=== PATIENT | female | born 1995 | race Caucasian/White ===

== ENCOUNTER 2017-06-03 15:21 | Emergency (ER) | payer BC ==
[~2017-06-03 15:21] MED LIST: GUMMCHW PO
--- NOTE | 2017-06-03 16:27 | PD ---
HPI Chief Complaint Pelvic pain and pelvic pressure Travel History International Travel<30 Days: No Contact w/Intl Traveler<30Days: No Known Affected Area: No History of Present Illness HPI 22-year-old, 001, IUP at 35.for new care uncomplicated per patient report The patient presents complaining complaining of pelvic pain and pressure that started at 6 AM with occasional sharp pains that are knifelike and stabbing in quality when she moves. The pelvic pain and pressure is constant and there are no aggravating or alleviating factors. The sharp pains are better at rest and aggravated with certain movements. Patient denies any VB, LOF, or painful contractions or cramping. Weeks Gestation: 35 Para: 1 : 2 History Past Medical History Medical History: Denies Significant Hx Obstetric History Obstetric History FT Past Surgical History Narrative Surgical Ear surgery x2 Family History Family History: Negative Social History Alcohol Use: No Tobacco Use: No Substance Abuse: No Allergies-Medications (Allergen,Severity, Reaction): Coded Allergies: No Known Allergies (Unverified , 03/25/15) Home Meds Reported Medications Pediatric Multiple Vitamin W/ (Gummi Bear Multivitamin/M) Multivit Chw, 1 TAB PO DAILY 03/25/15 Review of Systems Except as stated in HPI: all other systems reviewed are Neg Genitourinary: Pelvic Pain Physical Exam Narrative GENERAL: Well-nourished, well-developed patient. SKIN: Warm and dry. HEAD: Normocephalic and atraumatic. EYES: No scleral icterus. No injection or drainage. ENT: No nasal drainage noted. Mucous membranes pink. Airway patent. NECK: Supple, trachea midline. No JVD. CARDIOVASCULAR: Regular rate and rhythm without murmurs, gallops, or rubs. RESPIRATORY: Breath sounds equal bilaterally. No accessory muscle use. BREASTS: Bilateral exam showed no masses , no retractions, no nipple discharge. ABDOMEN/GI: Abdomen soft, non-tender, bowel sounds present, no rebound, no guarding Gravid GENITOURINARY: External Genitalia: intact and normal in appearance, BUS normal, normal rugae , no cervical/vaginal masses noted, physiologic discharge, cervical exam is closed/thick/high/posterior, there are no contractions noted and membranes are intact. FHT's: Category: Category 1 heart rate tracing with reactive NST Baseline: Baseline heart rate 150s Reactive: Reactive NST Variability: Moderate long-term variability Decels: Good accelerations noted and no decelerations EXTREMITIES: No cyanosis or edema. BACK: Nontender without obvious deformity. No CVA tenderness. NEUROLOGICAL: Awake and alert. Motor and sensory grossly within normal limits. Five out of 5 muscle strength in all muscle groups. Normal speech. Musculoskeletal: Grossly normal ROM, gait, muscle strength Psych: Grossly normal memory and affect MDM Plan Assessment/plan: 1. Intrauterine at 35.4 2. Pelvic pain and pressure: Likely related to normal at gestational age of 35 weeks no evidence of labor, strict labor precautions. Sharp abdominal pains are consistent with round ligament stretching, there is no evidence of labor but the patient's given labor precautions at this time 3. well-being: The patient has reassuring testing with a reactive NST and FHR other reassuring and appropriate for gestational age. Strict FKC daily. 4. h/o ear surgery x2 5. Follow-up with primary OB in 2-3 days or sooner as needed Diagnosis Diagnosis: Primary Impression: 35 weeks gestation of Additional Impression: False labor before 37 completed weeks of gestation Disposition: 01 DISCHARGE HOME Condition: Good Patient Instructions: General Instructions, Early Labor Signs (ED), Movement (ED) Departure Forms: Tests/Procedures Trudi Jacobo MD Jun 03, 2017 16:27
== END 2017-06-03 16:44 | disposition home or self-care (01) ==
LOC: HOBED 15:21
DX: O47.03 False labor before 37 completed weeks of gestation, third trimester (principal); R10.2 Pelvic and perineal pain; Z3A.35 35 weeks gestation of pregnancy
CPT/HCPCS: 59025

== ENCOUNTER 2017-06-25 20:38 | Inpatient (IN) | payer BC ==
[~2017-06-25] VITALS: Ht 160 cm; Wt 76.4 kg
[2017-06-25] MEDS ORDERED: LACTATED RINGER'S 1000 ML INJ 1,000 ML IV SCH (21:22)
[2017-06-25] MEDS ORDERED: LACTATED RINGER'S 1000 ML INJ 1,000 ML IV PRN (21:22)
--- NOTE | 2017-06-25 21:22 | HHI.HP ---
HPI Chief Complaint conTraction pain and possibly leaking fluid Date Seen: Jun 25, 2017 Time Seen: 21:15 Travel History International Travel<30 Days: No Contact w/Intl Traveler<30Days: No Known Affected Area: No History of Present Illness HPI Patient is 22-year-old white female previous and would like to now 38 weeks who presents in active labor. She sees Dr. Pal for care and Dr. Kirk covering for him tonight. She complains of painful uterine contractions are regular she will possibly leaking fluid her amnio sure is negative. She has only minimal spotting. heart rate tracing is reactive and she is clarisse regularly every 2-3 minutes Weeks Gestation: 38 Para: 1 : 2 History Obstetric History Obstetric History 1 Past Surgical History Narrative Surgical 1 Social History Alcohol Use: No Tobacco Use: No Substance Abuse: No Allergies-Medications (Allergen,Severity, Reaction): Coded Allergies: No Known Allergies (Unverified , 03/25/15) Home Meds Reported Medications Pediatric Multiple Vitamin W/ (Gummi Bear Multivitamin/M) Multivit Chw, 1 TAB PO DAILY 03/25/15 Review of Systems General / Constitutional: No: Fever, Weight Gain, Chills, Other Eyes: No: Diploplia, Blurred Vision, Visual changes, Pain, Photophobia HENT: No: Headaches, Vertigo, Lightheadedness Cardiovascular: No: Irregular Rhythm, Chest Pain or Discomfort, Palpitations, Tachycardia, Syncope, Varicosities, Edema, Cyanosis Respiratory: No: Cough, Short of Breath, Other Gastrointestinal: Abdominal Pain, No: Nausea, Vomiting, Diarrhea Genitourinary: No: Decreased Urinary Output, Oliguria Musculoskeletal: No: Limited ROM, Weakness, Cramping, Edema, Pain Skin: No Rash, No Itching, No Dryness, No Lumps, No Change in Pigmentation, No Change in Nails, No Alopecia, No Lesions Neurologic: No: Weakness, Dizziness, Syncope, Focal Abnormalities, Coordination Problem, Headache, Slurred Speech, Seizures Psychiatric: No: Depression, Suicidal Ideations, Homicidal Ideation Endocrine: No: Heat Intolerance, Cold Intolerance, Polydipsia, Polyuria, Other Physical Exam Narrative GENERAL: Well-nourished, well-developed patient. SKIN: Warm and dry. HEAD: Normocephalic and atraumatic. EYES: No scleral icterus. No injection or drainage. ENT: No nasal drainage noted. Mucous membranes pink. Airway patent. NECK: Supple, trachea midline. No JVD. CARDIOVASCULAR: Regular rate and rhythm without murmurs, gallops, or rubs. RESPIRATORY: Breath sounds equal bilaterally. No accessory muscle use. BREASTS: Bilateral exam showed no masses , no retractions, no nipple discharge. ABDOMEN/GI: Abdomen soft, non-tender, bowel sounds present, no rebound, no guarding Gravid to [38-] weeks size Fundal Height: [-38] GENITOURINARY: External Genitalia: intact and normal in appearance BUS glands: [-] Cervix: [Mid position-] Dilatation: [-4] Effacement: [-] 90 Station: [0] Presentation: [vtx-] Membranes: [intact amnio sure negative] Uterine Contractions: [-]reg FHT's: Category: [-1] Baseline: [-133] Reactive: [-yes] Variability: [-mod] Decels: [-none] EXTREMITIES: No cyanosis or edema. BACK: Nontender without obvious deformity. No CVA tenderness. NEUROLOGICAL: Awake and alert. Motor and sensory grossly within normal limits. Five out of 5 muscle strength in all muscle groups. Normal speech. Caprini VTE Risk Assessment Caprini VTE Risk Assessment: No/Low Risk (score <= 1) Caprini Risk Assessment Model Point Value = 1 Point Value = 2 Point Value = 3 Point Value = 5 Age 41-60 Minor surgery BMI > 25 kg/m2 Swollen legs Varicose veins or History of unexplained or recurrent spontaneous Oral contraceptives or hormone replacement Sepsis (< 1 month) Serious lung disease, including pneumonia (< 1 month) Abnormal pulmonary function Acute myocardial infarction Congestive heart failure (< 1 month) History of inflammatory bowel disease Medical patient at bed rest Age 61-74 Arthroscopic surgery Major open surgery (> 45 min) Laparoscopic surgery (> 45 min) Malignancy Confined to bed (> 72 hours) Immobilizing plaster cast Central venous access Age >= 75 History of VTE Family history of VTE Factor V Leiden Prothrombin [id number] Lupus anticoagulant Anticardiolipin antibodies Elevated serum homocysteine Heparin-induced thrombocytopenia Other congenital or acquired thrombophilia Stroke (< 1 month) Elective arthroplasty Hip, pelvis, or leg fracture Acute spinal cord injury (< 1 month) Prophylaxis Regimen Total Risk Factor Score Risk Level Prophylaxis Regimen 0-1 Low Early ambulation 2 Moderate Order ONE of the following: *Sequential Compression Device (SCD) *Heparin 5000 units SQ BID 3-4 Higher Order ONE of the following medications: *Heparin 5000 units SQ TID *Enoxaparin/Lovenox 40 mg SQ daily (WT < 150 kg, CrCl > 30 mL/min) *Enoxaparin/Lovenox 30 mg SQ daily (WT < 150 kg, CrCl > 10-29 mL/min) *Enoxaparin/Lovenox 30 mg SQ BID (WT < 150 kg, CrCl > 30 mL/min) AND/OR *Sequential Compression Device (SCD) 5 or more Highest Order ONE of the following medications: *Heparin 5000 units SQ TID (Preferred with Epidurals) *Enoxaparin/Lovenox 40 mg SQ daily (WT < 150 kg, CrCl > 30 mL/min) *Enoxaparin/Lovenox 30 mg SQ daily (WT < 150 kg, CrCl > 10-29 mL/min) *Enoxaparin/Lovenox 30 mg SQ BID (WT < 150 kg, CrCl > 30 mL/min) AND *Sequential Compression Device (SCD) Data Data Group B Strep: Negative Labs Amnio sure negative Assessment/Plan Assessment and Plan Patient 22-year-old white female at 38 weeks she's previous and wants a . She understands risk and benefit . There is 1% approximately uterine rupture rate she's willing to accept that. She is clarisse regularly cervix is 4 cm 90% the baby's head to 0 station. heart rate tracing is reactive contractions seen, amnio sure was negative. Impression-term intrauterine previous for delivery now in active labor Plan-admit for labor management augmentation as needed anticipate vaginal delivery notify Dr. Reagan Reis,Jay Brasher II, MD Jun 25, 2017 21:22
[2017-06-25] MEDS ORDERED: MINERAL OIL 10 ML VIAL TOPICAL PRN (21:30)
[2017-06-25] MEDS ORDERED: SODIUM CHLORID 0.9% 500 ML INJ 500 ML IV PRN (21:30)
[2017-06-25] MEDS ORDERED: LIDOCAINE HCL 1% 50 ML VIAL INFIL PRN (21:30)
[2017-06-25] MEDS ORDERED: LIDOCAINE HCL 1% 50 ML VIAL I-DERMAL PRN (21:30)
[2017-06-25] MEDS ORDERED: OXYTOCIN 30 UNITS-500ML PREMIX 500 ML IV ONE (21:30)
[2017-06-25] MEDS ORDERED: CITRIC ACID-SODIUM CITRATE LIQ 30 ML UDC PO SCH (21:30)
[2017-06-25] MEDS ORDERED: SODIUM CHLOR 0.9% 1000 ML INJ 1,000 ML IV PRN (21:42)
[2017-06-25 22:03] LABS: AUTOMATED NEUTROPHIL # 9.1 TH/MM3 (1.8-7.7); BASOPHIL % 0.3 % (0.0-2.0); EOSINOPHIL % 0.2 % (0.0-4.0); HEMATOCRIT 36.3 % (35.0-46.0); HEMO FLAGS DIFF FINAL; LYMPH % 13.5 % (9.0-44.0); LYMPHOCYTE # 1.5 TH/MM3 (1.0-4.8); MEAN CELL VOLUME 87.6 FL (80.0-100.0); MEAN CORPUSCULAR HEMOGLOBIN 29.1 PG (27.0-34.0); MEAN CORPUSCULAR HGB CONC 33.3 % (32.0-36.0); MONO % 6.7 % (0.0-8.0); NEUT % 79.3 % (16.0-70.0); PLATELET COUNT 256 TH/MM3 (150-450); RED BLOOD COUNT 4.15 MIL/MM3 (4.00-5.30); RED CELL DISTRIBUTION WIDTH 13.5 % (11.6-17.2); WHITE BLOOD COUNT 11.5 TH/MM3 (4.0-11.0)
[2017-06-25 22:11] LABS: BACTERIA, URINE MOD /hpf; BLOOD, URINE MOD (NEG); COMMENT (UR) CULTURE INDICATED; CULTURE IF INDICATED CULTURE INDICATED; GLUCOSE,URINE NEG (NEG); KETONE, URINE 40 mg/dL (NEG); MUCUS URINE MANY /lpf (OCC); NITRITE,URINE NEG (NEG); PH, URINE 6.5 (5.0-8.5); SQUAMOUS EPITHELIAL CELL URINE 31 /hpf (0-5); URINE COLOR DARK-YELLOW (YELLW/STRAW)
[2017-06-25] MEDS ORDERED: fentaNYL 2MCG-BUPIV 0.125% INJ 100 ML ONE (22:11)
[2017-06-25] MEDS ORDERED: ePHEDrine/NS 25 MG/5 ML SYR ONE (22:12)
[2017-06-25] MEDS ORDERED: BUPIVACAINE HCL PF 0.25% 10 ML VIAL ONE (22:38)
[2017-06-26] MEDS ORDERED: NO SYSTEM NARCOTICS PRN (00:15)
[2017-06-26] MEDS ORDERED: fentaNYL 2MCG-BUPIV 0.125% 100 ML EPIDURAL SCH (00:15)
[2017-06-26] MEDS ORDERED: ePHEDrine/NS 25 MG/5 ML SYR IV PRN (00:15)
[2017-06-26] MEDS ORDERED: DO NOT ADMINISTER ANTICOAGULANTS PRN (00:15)
[2017-06-26] MEDS ORDERED: ACETAMINOPHEN 650 MG SUPP RECTAL PRN (08:15)
[2017-06-26] MEDS ORDERED: GENTAMICIN INJ 80 MG in SODIUM CHLORIDE 0.9% INJ 100 ML IV SCH (08:15)
[2017-06-26] MEDS ORDERED: OXYTOCIN 30 UNITS-500ML PREMIX 500 ML IV SCH ×2 (08:15→12:15)
[2017-06-26] MEDS: GENTAMICIN/SOD CHL 80 MG/100 ML IV SCH ×2 (09:26→18:36)
[2017-06-26] MEDS ORDERED: MISOPROSTOL 200 MCG TAB ONE (11:13)
--- NOTE | 2017-06-26 11:57 | PD.OB.DELI ---
Weeks gestation: 38 Gest age assessed date: Jun 26, 2017 Gest age assessed time: 10:00 Pt started active labor?: Yes Active labor start date: Jun 25, 2017 Active labor start time: 18:00 Medical induction of labor?: No Artificial rupture of membrane: Yes Artificial ROM date: Jun 25, 2017 Artifical ROM time: 23:17 Anesthesia: Epidural Episiotomy: None Vaginal Delivery: Normal Presentation: Occiput anterior Nuchal Cord: None Delayed cord clamping (45 sec): No : Female Delivery date: Jun 26, 2017 Delivery time: 11:06 One Minute : 9 Five Minute : 9 Placenta: Manual removal Laceration: Vaginal laceration, 1 deg Repair: Chromic interrupted, Vicryl interrupted Estimated blood loss: 400 Additional Information Assumed care for patient from Dr. Reis. Patient with SVE 9cm for nearly 7h and being augmented with oxytocin. Upon vaginal exam after assuming care for the patient, she was noted to be completely dilated and +1 station. heart tones were reassuring so we commenced spontaneous maternal expulsive efforts the patient continued these efforts and the vertex was delivered atraumatically over an intact perineum followed by atraumatic delivery of the anterior shoulder and remainder of the atraumatically with overall reassuring heart tones. The was placed on the maternal abdomen and the cord was doubly clamped and cut so the could be taken to the warmer for additional stimulation. The was vigorous before 1 minute of life. The uterine cervix had clamped down so the placenta was removed manually after consenting the patient. The placenta appeared to be intact. The placenta was sent to pathology and cultures were obtained. A first-degree vaginal laceration was noted which was repaired with 2-0 chromic in an interrupted fashion and a 3-0 Vicryl to ensure excellent cosmesis. EBL 400. The weighed 3165 g and had Apgars of 9/9. All sponge, lap, and needle counts were correct 2. Mother and baby are both doing well. Trudi Jacobo MD Jun 26, 2017 11:57
[2017-06-26] MEDS ORDERED: ALUMINUM/MAGNESIUM/SIMETH 30 ML CUP PO PRN (12:15)
[2017-06-26] MEDS ORDERED: BENZOCAINE 20% TOPICAL SPRAY 60 ML CAN TOPICAL PRN (12:15)
[2017-06-26] MEDS ORDERED: WITCH HAZEL 50%/GLYCERIN 12.5% 40 PAD JAR TOPICAL PRN (12:15)
[2017-06-26] MEDS ORDERED: SODIUM CHLORIDE 0.9% FLUSH 10 ML FLUSH IV FLUSH PRN (12:15)
[2017-06-26] MEDS ORDERED: ONDANSETRON ODT 4 MG TAB PO PRN (12:15)
[2017-06-26] MEDS ORDERED: ZOLPIDEM TARTRATE 5 MG TAB PO PRN (12:15)
[2017-06-26] MEDS ORDERED: ACETAMINOPHEN 325 MG TAB PO PRN (12:15)
[2017-06-26] MEDS ORDERED: METHYLERGONOVINE MALEATE 0.2 MG TAB PO PRN (12:15)
[2017-06-26] MEDS ORDERED: DOCUSATE SODIUM 50 MG/SENNA 8.6 MG TAB PO PRN (12:15)
[2017-06-26] MEDS ORDERED: oxyCODONE/ACETAMINOPHEN 5 MG/325 MG TAB PO PRN ×2 (12:15)
[2017-06-26] MEDS: AMPICILLIN INJ 2,000 MG in SODIUM CHLORIDE 0.9% INJ 100 ML IV SCH ×2 (12:31→18:00)
[2017-06-26] MEDS: IBUPROFEN 600 MG TAB PO PRN ×2 (12:32→20:15)
[2017-06-26] MEDS ORDERED: MEASLES, MUMPS, RUBELLA VACCINE 0.5 ML VIAL SQ ONE (16:00)
[2017-06-26] MEDS ORDERED: DIPHTH/TETANUS/ACEL PERTUSSIS (BOOSTER) 0.5 ML VIAL/PFS IM ONE (16:00)
[2017-06-26] MEDS ORDERED: SODIUM CHLORIDE 0.9% FLUSH 10 ML FLUSH IV FLUSH SCH (21:00)
[2017-06-27] MEDS: IBUPROFEN 600 MG TAB PO PRN (06:45)
[2017-06-27] MEDS: GENTAMICIN/SOD CHL 80 MG/100 ML IV SCH ×2 (10:01→18:35)
--- NOTE | 2017-06-27 10:42 | HHI.OB ---
Subjective Post Operative Day: 1 Remarks Pt seen and examined this morning. day # 1 from . AFVSS overnight. Decreased lochia. Denies dysuria. No breast tenderness. She is feeding the baby via breast and bottle. Appetite good. No nausea or vomiting. Patient has not yet had a bowel movement or passed bowel gas. Ambulating well. Denies calf pain or shortness of breath. Otherwise, she is doing well this morning and has no other concerns. Objective Result Diagram: 06/25/172126 Objective Remarks GENERAL: Well-nourished, well-developed patient. CARDIOVASCULAR: Regular rate and rhythm without murmurs, gallops, or rubs. RESPIRATORY: Breath sounds equal bilaterally. No accessory muscle use. ABDOMEN/GI: Abdomen soft, non-tender, bowel sounds present. Incision: Clean, dry and intact. Fundus: Firm, non-tender at umbilicus. GENITOURINARY: Light to moderate bleeding. EXTREMITIES: No cyanosis or edema, non-tender, without signs of DVT. Medications and IVs Current Medications Medications (Trade) Dose Ordered Sig/Jocelyn Route Start Time Stop Time Status Last Admin Fentanyl/ Bupivacaine HCl 100 ml @ 0 mls/hr TITRATE EPIDURAL 06/26/17 00:15 06/26/17 05:51 Ampicillin Sodium 2000 mg/Sodium Chloride 100 ml @ 400 mls/hr Q6HR IV 06/26/17 12:00 06/26/17 18:00 (Tylenol Supp) 650 mg Q6H PRN RECTAL 06/26/17 08:15 06/26/17 08:50 Gentamicin Sulfate/Sodium Chloride 100 ml @ 200 mls/hr Q8H IV 06/26/17 10:00 06/27/17 10:01 (NS Flush) 2 ml BID IV FLUSH 06/26/17 21:00 (NS Flush) 2 ml UNSCH PRN IV FLUSH 06/26/17 12:15 (Tylenol) 650 mg Q4H PRN PO 06/26/17 12:15 (Motrin) 600 mg Q6H PRN PO 06/26/17 12:15 06/27/17 06:45 (Percocet 5-325 Mg) 1 tab Q4H PRN PO 06/26/17 12:15 (Percocet 5-325 Mg) 2 tab Q4H PRN PO 06/26/17 12:15 06/27/17 06:45 (Americaine 20% Top Spr) 1 spray Q4H PRN TOPICAL 06/26/17 12:15 06/26/17 15:20 (Tucks Pads) 1 applic QID PRN TOPICAL 06/26/17 12:15 06/26/17 15:20 (Nina-Colace) 2 tab Q12H PRN PO 06/26/17 12:15 (Ambien) 5 mg HS PRN PO 06/26/17 12:15 (Mag-Al Plus Susp Liq) 15 ml Q8H PRN PO 06/26/17 12:15 (Zofran Odt) 4 mg Q6H PRN PO 06/26/17 12:15 (Methergine) 0.2 mg Q6H PRN PO 06/26/17 12:15 Assessment/Plan Assessment and Plan 22 y/o female who is day # 1 s/p uncomplicated . -Continue routine care. -Motrin PRN pain. -Patient with fever to 101.6. Patient started on ampicillin and gentamicin for antibacterial coverage secondary to endometritis. Patient afebrile overnight without complaints today. -Encouraged OOB. Advised pelvic rest for 6 wks. -Re: ctrl, she would like to discuss her options at her follow-up appointment. -Anticipate discharge tomorrow depending patient being afebrile for 36 hours (likely tomorrow pending clinical course). MD Randy Aguilar Dr., Ryan H MD R2 Jun 27, 2017 10:42
[2017-06-27] MEDS: AMPICILLIN INJ 2,000 MG in SODIUM CHLORIDE 0.9% INJ 100 ML IV SCH ×2 (12:35→17:57)
[2017-06-27 17:40] VITALS: BP 105/74; PULSE 69; RESP 16; TEMP 97.6
[2017-06-28] MEDS: GENTAMICIN/SOD CHL 80 MG/100 ML IV SCH ×2 (02:00→11:10)
--- NOTE | 2017-06-28 11:02 | HHI.DCPOC ---
Discharge Care Plan Your Health Problems Are: Vaginal delivery Report Symptoms to Your Doctor -Temperature above 100.5 degrees -Redness, of incision or excessive or foul smelling drainage -Unusual pain or calf pain -Increased vaginal bleeding -Painful or difficulty urinating -Feelings of extreme sadness or anxiety after 2 weeks Goals to Promote Your Health * To prevent worsening of your condition and complications * To maintain your health at the optimal level Directions to Meet Your Goals Take your medications as prescribed Follow your dietary instruction Follow activity as directed Ensure plenty of rest for recovery Drink fluids for hydration Keep your appointments as scheduled Take your immunizations and boosters as scheduled If your symptoms worsen call your PCP, if no PCP go to Urgent Care Center or Emergency Room Smoking is Dangerous to Your Health. Avoid second hand smoke Call the 24-hour crisis hotline for domestic abuse at Shahida Joy Jun 28, 2017 11:02
[2017-06-28] MEDS: AMPICILLIN INJ 2,000 MG in SODIUM CHLORIDE 0.9% INJ 100 ML IV SCH ×3 (11:11)
[2017-06-28] MEDS ORDERED: IBUP-232 PO (11:14)
--- NOTE | 2017-06-28 11:30 | HHI.OB ---
Subjective Post Day: 2 Objective Vitals/I&O Vital Signs Date Time Temp Pulse Resp B/P (MAP) Pulse Ox O2 Delivery O2 Flow Rate FiO2 06/27/17 17:40 97.6 69 16 105/74 (84) Objective Remarks GENERAL: Well-nourished, well-developed patient. CARDIOVASCULAR: Regular rate and rhythm without murmurs, gallops, or rubs. RESPIRATORY: Breath sounds equal bilaterally. No accessory muscle use. ABDOMEN/GI: Abdomen soft, non-tender. Fundus: Firm, non-tender at umbilicus. GENITOURINARY: Light to moderate bleeding. EXTREMITIES: No cyanosis or edema, non-tender, without signs of DVT. Medications and IVs Current Medications Medications (Trade) Dose Ordered Sig/Jocelyn Route Start Time Stop Time Status Last Admin Fentanyl/ Bupivacaine HCl 100 ml @ 0 mls/hr TITRATE EPIDURAL 06/26/17 00:15 06/26/17 05:51 Ampicillin Sodium 2000 mg/Sodium Chloride 100 ml @ 400 mls/hr Q6HR IV 06/26/17 12:00 06/28/17 11:11 (Tylenol Supp) 650 mg Q6H PRN RECTAL 06/26/17 08:15 06/26/17 08:50 Gentamicin Sulfate/Sodium Chloride 100 ml @ 200 mls/hr Q8H IV 06/26/17 10:00 06/28/17 11:10 (NS Flush) 2 ml BID IV FLUSH 06/26/17 21:00 06/27/17 09:00 (NS Flush) 2 ml UNSCH PRN IV FLUSH 06/26/17 12:15 (Tylenol) 650 mg Q4H PRN PO 06/26/17 12:15 (Motrin) 600 mg Q6H PRN PO 06/26/17 12:15 06/27/17 06:45 (Percocet 5-325 Mg) 1 tab Q4H PRN PO 06/26/17 12:15 (Percocet 5-325 Mg) 2 tab Q4H PRN PO 06/26/17 12:15 06/27/17 06:45 (Americaine 20% Top Spr) 1 spray Q4H PRN TOPICAL 06/26/17 12:15 06/26/17 15:20 (Tucks Pads) 1 applic QID PRN TOPICAL 06/26/17 12:15 06/26/17 15:20 (Nina-Colace) 2 tab Q12H PRN PO 06/26/17 12:15 (Ambien) 5 mg HS PRN PO 06/26/17 12:15 (Mag-Al Plus Susp Liq) 15 ml Q8H PRN PO 06/26/17 12:15 (Zofran Odt) 4 mg Q6H PRN PO 06/26/17 12:15 (Methergine) 0.2 mg Q6H PRN PO 06/26/17 12:15 Assessment/Plan Problem List: (1) Normal vaginal delivery ICD Codes: O80 - Encounter for full-term uncomplicated delivery Assessment and Plan 22 y/o female who is day # 1 s/p uncomplicated . pt doing well pain well managed not taking any oral medications at this time bonding with infant -Continue routine care. Discharge Planning dc home today Shahida Joy Jun 28, 2017 11:30
[2017-06-28] MEDS ORDERED: DIPHTH/TETANUS/ACEL PERTUSSIS (BOOSTER) 0.5 ML VIAL/PFS IM ONE (13:15)
--- NOTE | 2017-06-28 13:31 | HHI.DS ---
Admission Date Jun 25, 2017 at 21:23 Discharge Date: Jun 28, 2017 Admitting Diagnosis 38 week gestation previous c section, desires active labor Diagnosis: (1) Normal vaginal delivery Diagnosis: Principal ICD Codes: O80 - Encounter for full-term uncomplicated delivery Delivery Date: Jun 26, 2017 Vaginal Delivery: Normal Infant: Female Brief History Patient is 22-year-old white female previous and would like to now 38 weeks who presents in active labor. She sees Dr. Pal for care and Dr. Reagan guzmán for him tonight. She complains of painful uterine contractions are regular she will possibly leaking fluid her amnio sure is negative. She has only minimal spotting. heart rate tracing is reactive and she is clarisse regularly every 2-3 minutes labor augmented with pitocin Hospital Course routine care Pt Condition on Discharge: Good Discharge Disposition: Discharge Home Discharge Instructions Diet Instructions: As Tolerated, No Restrictions Additional Diet Instructions: Drink at least 8 - 16 oz bottles of water a day Activities You Can Perform: Shower Only-No Bath, Sitz Bath Activities to Avoid: Lifting/Bending, Sexual Activity Additional Activity Instruc.: No driving until off pain medications Do not lift anything heavier than your baby in an infant carrier Follow up Referrals: ACCOUNT INSTALLER - 2 Weeks @ [facility] New Medications: Ibuprofen (Ibuprofen) 600 Mg Tab 600 MG PO Q6H PRN for CRAMPING, #30 TAB 1 Refill Continued Medications: Pediatric Multiple Vitamin W/ (Gummi Bear Multivitamin/M) Multivit Chw 1 TAB PO DAILY Shahida Joy Jun 28, 2017 13:31
[2017-06-29] MEDS ORDERED: INFLUENZA VIRUS VACCINE (QUADRIVALENT) 0.5 ML SYR IM ONE (10:00)
== END 2017-06-28 16:21 | disposition home or self-care (01) | DRG 767 ==
LOC: HOBED 20:38 → H2EB 21:23 → H1EA 06-26 14:03
PROVIDERS: ADMIT Obstetrics & Gynecology Maternal & Fetal Medicine; ATTEND Obstetrics & Gynecology Maternal & Fetal Medicine
PROC: 10907ZC Drainage of Amniotic Fluid, Therapeutic from Products of Conception, Via Natural or Artificial Opening (ICD-10-PCS; 2017-06-25)
PROC: 3E0S3CZ (ICD-10-PCS; 2017-06-25)
PROC: 00HU33Z Insertion of Infusion Device into Spinal Canal, Percutaneous Approach (ICD-10-PCS; 2017-06-25)
PROC: 10E0XZZ Delivery of Products of Conception, External Approach (ICD-10-PCS; principal; 2017-06-26)
PROC: 10D17ZZ Extraction of Products of Conception, Retained, Via Natural or Artificial Opening (ICD-10-PCS; 2017-06-26)
PROC: 0HQ9XZZ Repair Perineum Skin, External Approach (ICD-10-PCS; 2017-06-26)
DX: O34.219 Maternal care for unspecified type scar from previous cesarean delivery (principal); O86.12 Endometritis following delivery; N71.9 Inflammatory disease of uterus, unspecified; O70.0 First degree perineal laceration during delivery; O73.0 Retained placenta without hemorrhage; Z3A.38 38 weeks gestation of pregnancy; Z37.0 Single live birth
CPT/HCPCS: 59025; 81001; 85025; 86850; 86900; 86901; 87070; 87086; 88307; 90686; 90715; J0290; J1580; J2590; J7120; Q2038